=== PATIENT | female | born 1980 | race American Indian/Alaskan Native ===

== ENCOUNTER 2020-12-23 09:17 | Inpatient (IN) | payer OTHER ==
--- NOTE | 2020-12-23 09:55 | Anesthesia Day of Surgery ---
Anesthesia Day of Surgery - Day of Surgery Patient Examined: Yes Patient H&P Reviewed: Yes Patient is NPO: Yes (10 PM) Beta Blockers: Yes Cardiac Clearance: No Pulmonary Clearance: No Jacky's Test: Negative
--- NOTE | 2020-12-23 10:01 | Anesthesia Consultation ---
Anesthesia Consult and Med Hx Date of service: 12/23/20 - Airway Anesthetic Teeth Evaluation: Good ROM Head & Neck: Adequate Mental/Hyoid Distance: Adequate Mallampati Class: Class II Intubation Access Assessment: Probably Good - Pulmonary Exam CTA: Yes - Cardiac Exam Cardiac Exam: RRR - Pre-Operative Health Status ASA Pre-Surgery Classification: ASA3 Proposed Anesthetic Plan: Spinal - Pre-Anesthesia Comment Pre-Anesthesia Comments: uterine myomectomy, ACL repair- Right - Pulmonary Hx Smoking: No Hx Asthma: Yes (last attack one week ago) Hx Respiratory Symptoms: No SOB: Yes COPD: No Home Oxygen Therapy: No Hx Pneumonia: No Hx Sleep Apnea: No - Cardiovascular System Hx Hypertension: Yes (pregnacy) Hx Coronary Artery Disease: No Hx Heart Attack/AMI: No Hx Angina: No Hx Percutaneous Transluminal Coronary Angioplasty (PTCA): No Hx Cardia Arrhythmia: No Hx Pacemaker: No Hx Internal Defibrillator: No Hx Valvular Heart Disease: No Hx Heart Murmur: No Hx Peripheral Vascular Disease: No - Central Nervous System Hx Neuromuscular Disorder: No Hx Seizures: No CVA: No Hx Back Pain: Yes Hx Psychiatric Problems: Yes (anxiety) - Gastrointestinal Hx Ulcer: No Hx Gastroesophageal Reflux Disease: Yes - Endocrine Hx Renal Disease: No Hx End Stage Renal Disease: No Hx Cirrhosis: No Hx Liver Disease: No Hx Insulin Dependent Diabetes: No Hx Non-Insulin Dependent Diabetes: No Hx Thyroid Disease: No Hx Hypothyroidism: No Hx Hyperthyroidism: No - Hematic Hx Anemia: Yes Hx Sickle Cell Disease: No - Other Systems Hx Alcohol Use: No Hx Substance Use: No Hx Cancer: No Hx Obesity: Yes
[2020-12-23] MEDS ORDERED: LACTATED RINGERS 2,000 ML ONE (10:20)
[2020-12-23] MEDS ORDERED: LACTATED RINGERS 1,000 ML IV SCH ×2 (10:30→15:15)
[2020-12-23 11:04] LABS: Hematocrit 27.8 % (30.3-42.9); Hemoglobin 9.3 gm/dl (10.1-14.3); Mean Corpuscular HGB Conc 33 % (30-34); Mean Corpuscular Volume 88 fl (79-97); Platelet Count 157 K/mm3 (140-440); Red Blood Count 3.16 M/mm3 (3.65-5.03); Red Cell Distribution Width 15.7 % (13.2-15.2)
[2020-12-23] MEDS ORDERED: METOCLOPRAMIDE 10 MG/2 ML INJ IV SCH (11:30)
[2020-12-23] MEDS ORDERED: FAMOTIDINE 20 MG/2 ML INJ IV SCH (11:30)
[2020-12-23] MEDS ORDERED: BICITRA ORAL LIQD 30ML PO SCH (11:30)
[2020-12-23] MEDS ORDERED: ACETAMINOPHEN 325 MG TAB PO PRN (11:30)
[2020-12-23] MEDS ORDERED: BUTORPHANOL 2 MG/1 ML INJ IV PRN (11:30)
[2020-12-23] MEDS ORDERED: fentaNYL 100 MCG/2 ML INJ IV PRN (11:30)
[2020-12-23] MEDS ORDERED: ceFAZolin/Water 2 GM/20 ML 2 GM/20 ML SYRINGE IV NR (12:00)
[2020-12-23] MEDS ORDERED: OXYTOCIN DRIP 30 UNITS/500 ML BAG IV SCH ×2 (12:00→18:23)
[2020-12-23] MEDS ORDERED: ONDANSETRON 4 MG/2 ML INJ ONE (12:00)
--- NOTE | 2020-12-23 12:01 | History and Physical Report ---
History of Present Illness Date of examination: 12/23/20 Date of admission: 12/23/20 09:17 Chief complaint: scheduled primary section History of present illness: at 36.3wks by LMP c/w u/sound. care at [facility]. 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 Pt c/o intermittent lower pelvic pain more on the left side that is sharp. Pt denies LOF or vag bleed or headache. Pt admits to movement. Pt noted to have chronic HTN, IUGR in wt in the 2nd %. Pt also has chronic anemia, left flank pain, proteinuria and placed on macrobid suppression for recurrent UTI. H/O Asthma conrolled with albuterol inhaler. Pt had previous abdominal myomectomy that entered the uterine cavity done in 2019. 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 Pt's 2nd preg with polydactyly and corrective surgery done for that child. Past History Past Medical History: asthma, other (recurrent UTI on macrobid suppression. HSVII without outbreaks; chronic HTN on labetalol and aspirin and aspirin stopped 10days ago) - Obstetrical History : 4 Medications and Allergies Allergies Allergy/AdvReac Type Severity Reaction Status Date / Time No Known Allergies Allergy Unverified 12/23/20 10:09 Home Medications Medication Instructions Recorded Confirmed Last Taken Type RX: labetaloL [Labetalol 100mg TAB] 100 mg PO 12/23/20 12/22/20 History Active Meds: Active Medications Citric Acid/Sodium Citrate (Bicitra Oral Liqd 30ml) 30 ml PO ONCE LEESA Stop: 12/23/20 17:30 Last Admin: 12/23/20 11:29 Dose: 30 ml Documented by: Famotidine (Famotidine 20 Mg/2 Ml Inj) 20 mg IV ONCE LEESA Stop: 12/23/20 17:30 Last Admin: 12/23/20 11:29 Dose: 20 mg Documented by: Lactated Ringer's (Lactated Ringers) 1,000 mls @ 2,250 mls/hr IV PREOP LEESA Stop: 12/24/20 10:57 Last Admin: 12/23/20 11:33 Dose: 2,250 mls/hr Documented by: Oxytocin/Sodium Chloride (Pitocin/Ns 30 Unit/500ml) 30 units in 500 mls @ 0 mls/hr IV TITR LEESA; Protocol Cefazolin Sodium (Ancef/Sterile Water 2 Gm/20 Ml) 2 gm in 20 mls @ 80 mls/hr IV PREOP NR; Protocol Stop: 12/23/20 17:30 Metoclopramide HCl (Metoclopramide 10 Mg/2 Ml Inj) 10 mg IV ONCE LEESA Stop: 12/23/20 17:30 Last Admin: 12/23/20 11:30 Dose: 10 mg Documented by: Review of Systems All systems: negative (intermittent abdominal pain more on the left side) - Vital Signs Vital signs: Vital Signs Temp Resp 98.4 F 18 12/23/20 10:00 12/23/20 10:00 Temp Pulse Resp BP Pulse Ox 98.4 F 96 H 18 136/74 100 12/23/20 10:00 12/23/20 11:49 12/23/20 10:00 12/23/20 10:23 12/23/20 11:49 - Physical Exam Breasts: Positive: deferred Cardiovascular: Regular rate Lungs: Positive: Normal air movement Genitourinary (Female): Positive: normal external genitalia Vulva: both: normal Uterus: Positive: enlarged (non-tender, gravid) - Obstetrical FHR: category 1 Results Result Diagrams: 12/23/20 10:38 12/23/20 10:38 Abnormal lab results 12/23/20 Range/Units 10:38 RBC 3.16 L (3.65-5.03) M/mm3 Hgb 9.3 L (10.1-14.3) gm/dl Hct 27.8 L (30.3-42.9) % RDW 15.7 H (13.2-15.2) % All other labs normal. Assessment and Plan preg with previous myomectomy, now with IUGR and intermittent pelvic pain, recurrent UTI and chronic HTN controlled 1. Admit for primary section, cross match 2PRBC with anemia noted on current labs. 2. Continue hypertensive meds and check PIH labs 3. Will send cath urine for culture 4. Notify NICU and anesthesia dept. Consents signs Plan of care discussed and pt declines perm sterlization stating her partner plans to do vasectomy All questions encouraged and answered
[2020-12-23] MEDS ORDERED: SODIUM CHLORIDE 0.9% 500 ML 500 ML IV NR (12:10)
[2020-12-23] MEDS ORDERED: ceFAZolin/STERILE WATER 2 GM/20 ML SYRINGE IV ONE (12:10)
[2020-12-23] MEDS ORDERED: PHENYLEPHRINE/NS 1,000 MCG/10 ML SYRINGE (OR USE) IV ONE (12:22)
[2020-12-23] MEDS ORDERED: dexAMETHasone 20 MG/5 ML VIAL ONE (13:01)
[2020-12-23] MEDS ORDERED: BUPIVACAINE/PF (0.25%) 2.5 MG/ML 30 ML VIAL INFILTRATI ONE ×2 (13:01)
[2020-12-23] MEDS ORDERED: KETOROLAC 30 MG/1 ML INJ ONE (13:07)
[2020-12-23 13:48] LABS: Alanine Aminotransferase 13 units/L (7-56); Albumin 3.4 g/dL (3.9-5); Blood Urea Nitrogen 4 mg/dL (7-17); Calcium 9.4 mg/dL (8.4-10.2); Hemolysis Index 1; Uric Acid 5.7 mg/dL (3.5-7.6)
[2020-12-23 14:07] LABS: BUN/Creatinine Ratio 10
[2020-12-23 14:08] LABS: Bilirubin,Urine NEG (Negative); Blood,Urine SM (Negative); Color,Urine Yellow (Yellow); Mucus,Urine FEW /HPF; Urobilinogen,Urine < 2.0 mg/dL (<2.0)
--- NOTE | 2020-12-23 14:50 | Progress Note ---
Spinal Anesthesia Block - Spinal Anesthesia Block Start Time: 12:01 Stop Time: 12:07 Performed by:: ENRIQUE ALVAREZ Procedure: Timeout was performed at bedside. Patient in sitting position. Sterile prep and drape was performed. [4] ml of 1% lidocaine skin wheal at L[3]- L [4]. 18- gauge hUST epidural needle was advanced to loss of resistance with air technique to cm. Negative CSF negative blood via Epidural needle. #27g Spinal needle clear, free flowing CSF, Pecedex 10 mcg. Epidural catheter advanced to [10] centimeters. [negative] Aspiration. Sterile dressing applied. Patient tolerated procedure.
--- NOTE | 2020-12-23 14:52 | Progress Note ---
Regional Anesthesia Block - Regional Anesthesia Block Start Time: 14:34 Stop Time: 14:37 Performed By:: ENRIQUE ALVAREZ Procedure: Patient consented for TAP block for post surgical pain management. Patient identified, monitors placed, and time out performed. TAP identified bilaterally via ultrasound. Skin prepped bilaterally with [chlorhexidine] and [22g stimuplex] needle advanced to the TAP. [Marcaine 0.25% 30ml] injected under ultrasound guidance on the [left] side. [Marcaine 0.25% 30ml] injected under ultrasound guidance on the [right] side. Negative aspiration every 5mL, No change in heart rate or rhythm. Patient tolerated the procedure well. No apparent complications seen.
--- NOTE | 2020-12-23 14:53 | Procedure Note ---
OB Delivery Note - Delivery Date of Delivery: 12/23/20 Surgeon: KARLEY CONDE Estimated blood loss: other (QBL 770cc, however my estimate 450cc plus irrigation) - Section Preop diagnosis: other ( at 36.6wks, prev abdominal myomectomy, IUGR in 2nd %; declines sterilization today) Postop diagnosis: same section procedure: primary low transverse Disposition: floor Complications: none Narrative: Date: 12/23/20 Surgeon: Karley Conde MD Preop Dx: IUP at 36.6wks, prev abdominal myomectomy in 2019 that entered uterine cavity, Intrauterine Uterine Growth Restriction, now at 2nd%; declines sterilization today Postop Dx: same Procedure : Primary Low Transverse section Anesthesia: Epidural Intake: 1100cc crystalloids Output: 100 clear urine at the end of the procedure EBL: 770 by QBL After the risks, benefits and alternatives of procedure discussed, patient melanie d consents and was taken to the operating room. Pt was given epidural anesthesia. After same was adequate, patient was prepped and draped in the usual sterile fashion. Cintron catheter in place and draining clear urine. Pt was given prophylactic antibiotic per protocol and time out was done Pfannenstiel skin incision was made and taken sharply to the fascia and the incision extended using electrocautery. Superior edge of the fascia was grasped with sandra clamps and the rectus muscle using blunt dissection and also using electrocautery. Lower portion of the fascia also sharply. Rectus muscle in the midline and Peritoneal cavity entered sharply and extended with good visualization of the bladder. Jeffry retractor placed. The bladder flap was created sharply using metzenbaum scissors. Lower uterine segment then entered transversely and amniotic sac entered using allys clamps. Uterine incision extended using bandage scissors avoiding large engorged vessels to the left side of uterus. delivered, bulb suctioned, cord clamped and baby handed to waiting pediatricians. Placenta then delivered completely and uterine cavity cleared of all clots and debri. The uterus was not exteriorized and closed in 2 layers using 0-monovicryl suture in a running locked fashion and then an additional layer of imbrication suture. Hemoblast placed and bladder peritoneum closed with 3-0 vicryl continuously. Excellent hemostasis noted. The gutters were cleared of clots and debri and anterior peritoneum closed using 3-0 vicryl suture and rectus muscle reapproximated using 0-vicryl suture. Rectus fascia closed with 0-monocryl suture and subcutaneous tissue copiously irrigated with normal saline and re-approximated using 3-0 vicryl suture. Excellent hemostasis remains. The skin was closed with 3-0 monocryl suture and steristrips placed with pressure dressing. Sponge, lap, instrument and needle counts x2 were normal. Patient tolerated the procedure well and was taken to recovery room stable. Findings: Viable female , APGARS 8/9 and weight 2610g. Normal size uterus with large engorged vessels to the left and normalized post delivery, n ormal tubes and ovaries bilaterally Pathology: placenta. - A at 1 minute: 8 at 5 minutes: 9 Infant Gender: Female (Wt 2610g)
[2020-12-23] MEDS ORDERED: ALBUTEROL 8.5 GM MDI INHALATION IH PRN (15:36)
[2020-12-23] MEDS ORDERED: ALBUTEROL 2.5 MG/3 ML NEBU IH PRN ×2 (16:00)
[2020-12-23] MEDS ORDERED: ONDANSETRON 4 MG/2 ML INJ IV PRN (18:23)
[2020-12-23] MEDS ORDERED: NALOXONE 0.4 MG/1 ML INJ IV PRN (18:23)
[2020-12-23] MEDS ORDERED: LANOLIN/ZINC/DIMETHICONE (LANSINOH) 7 GM TP PRN (18:23)
[2020-12-23] MEDS ORDERED: oxyCODONE /ACETAMINOPHEN 5-325MG TAB PO PRN (18:23)
[2020-12-23] MEDS ORDERED: WITCH HAZEL/ GLYCERIN PAD TP PRN (18:23)
[2020-12-23] MEDS ORDERED: MORPHINE 4 MG/1 ML INJ IV PRN (18:23)
[2020-12-23] MEDS ORDERED: HYDROCORTISONE 25 MG RECTAL SUPP PR PRN (18:23)
[2020-12-24] MEDS: IBUPROFEN 800 MG TAB PO PRN ×4 (03:49→21:08)
[2020-12-24 04:26] LABS: Hematocrit 25.4 % (30.3-42.9); Hemoglobin 8.5 gm/dl (10.1-14.3)
[2020-12-24] MEDS: HYDROcodone/ACETAMINOPHEN 5-325 MG TAB PO PRN ×4 (05:15→23:43)
[2020-12-24] MEDS: FERROUS SULFATE 325 MG TAB PO SCH (09:16)
[2020-12-24] MEDS: PRENATAL VIT27-FE FUMARATE-FOLIC ACID VIT TAB PO SCH (11:04)
--- NOTE | 2020-12-24 13:57 | Progress Note ---
Assessment and Plan - Patient Problems (1) S/P Current Visit: Yes Status: Acute Plan to address problem: Patient doing well postop day 1, meeting all close except for flatus. Continue to advance care. Anticipate discharge in 24 to 48 hours. (2) Chronic hypertension affecting Current Visit: Yes Status: Acute Plan to address problem: Labetalol was held given normotension. (3) Asthma Current Visit: Yes Status: Acute Plan to address problem: Albuterol as needed Subjective - Subjective Date of service: 12/24/20 Principal diagnosis: POD1 PTLCS for IUGR Interval history: Patient doing well POD1 s/p pLTCS for her at 36.6wks, prev abdominal myomectomy, IUGR in 2nd %; declines sterilization today). Patient doing well. Baby in the room also doing well. Tolerating p.o., urinating spontaneously, pain well controlled. No flatus. Denies PIH symptoms or asthma symptoms. Patient reports: appetite normal, voiding normally, pain well controlled [place]: doing well Objective - Vital Signs Latest vital signs: Vital Signs Temp Pulse Resp BP BP Pulse Ox 12/24/20 07:58 98.4 F 79 20 103/58 100 12/24/20 05:15 97.5 F L 97 H 20 118/66 98 12/24/20 01:27 98.2 F 88 20 104/58 96 12/23/20 20:51 97.9 F 77 20 130/78 100 12/23/20 17:00 97.4 F L 69 20 107/41 99 12/23/20 16:00 61 15 114/59 100 12/23/20 15:50 97.5 F L 63 14 109/57 98 12/23/20 15:35 69 15 108/65 98 12/23/20 15:20 96.4 F L 78 14 119/72 100 12/23/20 15:05 96.2 F L 84 14 126/85 98 12/23/20 14:50 63 14 118/73 98 12/23/20 14:45 62 14 120/73 98 12/23/20 14:40 58 L 13 114/72 98 12/23/20 14:33 96.1 F L 68 13 115/74 98 Intake and Output 12/23/20 12/24/20 12/24/20 23:59 07:59 15:59 Intake Total 375 220 120 Output Total 600 550 Balance -225 -330 120 Intake: IV 375 100 Right Hand 125 ceFAZolin 2 GM In NaCl 0. 100 100 9% 100 ml @ 200 mls/hr IV Q8H [facility] Rx#:[id number] Oral 120 120 Output: Urine 600 550 Indwelling Catheter 350 Void 200 Other: Total, Intake Amount 120 120 Total, Output Amount 200 - Exam Abdomen: Present: normal appearance Uterus: Present: firm Extremities: Present: normal Incision: Present: normal - Labs Labs: Abnormal lab results 12/23/20 12/24/20 Range/Units 10:38 04:04 Hgb 8.5 L (10.1-14.3) gm/dl Hct 25.4 L (30.3-42.9) % Creatinine 0.4 L (0.6-1.2) mg/dL
--- NOTE | 2020-12-24 18:00 | Post Anesthesia Evaluation ---
- Post Anesthesia Evaluation Patient Participated: Yes Airway Patent: Yes Stable Respiratory Function: Yes Nausea/Vomiting: No Temp > 96.8F: Yes Pain Manageable: Yes Adequeate Hydration: Yes Anesthesia Complications: No Block Receding Appropriately: Yes Patient on Ventilator: No
[2020-12-24] MEDS: SIMETHICONE 80 MG CHEW TAB PO PRN (21:08)
[2020-12-25] MEDS: HYDROcodone/ACETAMINOPHEN 5-325 MG TAB PO PRN ×2 (05:54→12:40)
[2020-12-25] MEDS: SIMETHICONE 80 MG CHEW TAB PO PRN (05:55)
--- NOTE | 2020-12-25 09:39 | Discharge Summary ---
Providers - Providers Date of Admission: 12/23/20 09:17 Date of discharge: 12/26/20 Attending physician: JAME CONDE Primary care physician: DELORES VALLE MD Hospitalization Reason for admission: section Delivery: Procedure: section, primary low transverse Episiotomy: none Laceration: none Incision: normal Other procedures: none complications: none Discharge diagnosis: delivery [place] baby: female Hospital course: Patient was admitted for primary low transverse for concern for IUGR, history of abdominal myomectomy that was uncomplicated. Patient was meeting goals by day 3 and discharged in good condition. Patient did not need an antihypertensives in the period. Condition at discharge: Good Disposition: DC-01 TO HOME OR SELFCARE - Discharge Diagnoses (1) S/P Status: Acute (2) Chronic hypertension affecting Status: Acute (3) Asthma Status: Acute Plan - Discharge Medications Prescriptions: Ibuprofen [Motrin] 800 mg PO Q8HR PRN 21 Days #40 tablet PRN Reason: Pain, Mild (1-3) oxyCODONE /ACETAMINOPHEN [Percocet 5/325] 1 tab PO Q4HR PRN 21 Days #30 tab PRN Reason: Pain , Severe (7-10) - Provider Discharge Summary Activity: no sex for 6 weeks, no heavy lifting 4 weeks, no strenuous exercise Diet: routine Instructions: routine Additional instructions: [] Smoking cessation referral if applicable(refer to patient education folder for contact #) [] Refer to [facility]'s [facility] Booklet Call your doctor immediately for: * Fever > 100.5 * Heavy vaginal bleeding ( >1 pad per hour) * Severe persistent headache * Shortness of breath * Reddened, hot, painful area to leg or breast * Drainage or odor from incision. * Keep incision clean and dry at all times and follow doctor's instructions regarding bathing/showering - Follow up plan Follow up: JAME CONDE MD [Staff Physician] - 14 Days
--- NOTE | 2020-12-25 09:39 | Progress Note ---
Assessment and Plan - Patient Problems (1) S/P Current Visit: Yes Status: Acute Plan to address problem: Patient doing well postop day 2, meeting all . Continue to advance care. Anticipate discharge in 24 hours. (2) Chronic hypertension affecting Current Visit: Yes Status: Acute Plan to address problem: Labetalol was held given normotension. (3) Asthma Current Visit: Yes Status: Acute Plan to address problem: Albuterol as needed Subjective - Subjective Date of service: 12/25/20 Principal diagnosis: POD2 PTLCS for IUGR Interval history: Patient doing well POD2 s/p pLTCS for her at 36.6wks, prev abdominal myomectomy, IUGR in 2nd %; declines sterilization today). Patient doing well. Baby in the room also doing well. Tolerating p.o., urinating spontaneously, pain well controlled. No flatus. Denies PIH symptoms or asthma symptoms. Reports that Dr. Leyva came to see her yesterday briefly and she gave recommendations for her incision. Patient reports: appetite normal, voiding normally, dizzy ambulation, pain well controlled, flatus : doing well Objective - Vital Signs Latest vital signs: Vital Signs Temp Pulse Resp BP Pulse Ox 12/25/20 08:31 98.0 F 74 18 124/64 100 12/25/20 05:54 20 12/25/20 01:30 97.7 F 78 20 127/60 99 12/24/20 23:43 20 12/24/20 22:08 18 12/24/20 21:08 20 12/24/20 16:14 98.4 F 97 H 18 126/55 100 Intake and Output 12/24/20 12/25/20 12/25/20 23:59 07:59 15:59 Intake Total 1200 480 240 Balance 1200 480 240 Intake: Oral 600 480 240 Intake, Free Water 600 Other: Total, Intake Amount 120 240 240 # Voids Void 3 1 1 - Exam Abdomen: Present: normal appearance, normal bowel sounds Uterus: Present: firm Incision: Present: normal
[2020-12-25] MEDS: FERROUS SULFATE 325 MG TAB PO SCH (09:58)
[2020-12-25] MEDS: MAGNESIUM HYDROXIDE (MOM) ORAL LIQD UDC PO PRN ×2 (09:58→18:06)
[2020-12-25] MEDS: PRENATAL VIT27-FE FUMARATE-FOLIC ACID VIT TAB PO SCH (09:58)
[2020-12-25] MEDS: IBUPROFEN 800 MG TAB PO PRN ×3 (09:59→23:48)
[2020-12-26] MEDS: HYDROcodone/ACETAMINOPHEN 5-325 MG TAB PO PRN ×2 (04:07→09:55)
[2020-12-26] MEDS: IBUPROFEN 800 MG TAB PO PRN (06:34)
[2020-12-26] MEDS: PRENATAL VIT27-FE FUMARATE-FOLIC ACID VIT TAB PO SCH (08:40)
[2020-12-26] MEDS: FERROUS SULFATE 325 MG TAB PO SCH (08:40)
[2020-12-26 09:33] VITALS: BP 130/61
== END 2020-12-26 14:00 | disposition home or self-care (01) | DRG 787 ==
LOC: APU 09:17 → OB 16:20
PROVIDERS: ATTEND Obstetrics & Gynecology
PROC: 10D00Z1 Extraction of Products of Conception, Low, Open Approach (ICD-10-PCS; principal; 2020-12-23)
PROC: 3E0T3BZ Introduction of Anesthetic Agent into Peripheral Nerves and Plexi, Percutaneous Approach (ICD-10-PCS; 2020-12-23)
DX: O36.5930 Maternal care for other known or suspected poor fetal growth, third trimester, not applicable or unspecified (principal); O10.92 Unspecified pre-existing hypertension complicating childbirth; O99.214 Obesity complicating childbirth; Z3A.36 36 weeks gestation of pregnancy; Z37.0 Single live birth; O99.52 Diseases of the respiratory system complicating childbirth; K21.9 Gastro-esophageal reflux disease without esophagitis; O99.344 Other mental disorders complicating childbirth; O99.62 Diseases of the digestive system complicating childbirth; Z20.822 Contact with and (suspected) exposure to COVID-19; F41.9 Anxiety disorder, unspecified; J45.909 Unspecified asthma, uncomplicated; O99.02 Anemia complicating childbirth; D64.9 Anemia, unspecified
CPT/HCPCS: 36415; 80053; 81001; 83615; 84550; 85014; 85018; 85027; 86592; 86850; 86900; 86901; 86920; 87086; 88307; G0378; J0690; J1100; J1885; J2270; J2370; J2405; J2765; J3490; J7120; U0003